=== PATIENT | male | born 1955 | race Caucasian/White ===

== ENCOUNTER 2017-02-04 21:42 | Day surgery (SDC) | payer SELFPAY ==
--- NOTE | ~2017-02-04 | OP ---
Record Of Operation [facility] [address] [place]. [address] NAME: JUDD DE PAZ : 57 STATUS : REG [facility] PAT#: [id number] AGE: 61 ADM/REG DATE : 02/04/17 MR#: [id number] REPORT SERV DATE: 02/05/17 DICTATED BY: GONZALO PARRA DATE: 02/04/17 REPORT STATUS : Draft TRANSCRIBED BY: MODL DATE: 02/04/17 DATE OF PROCEDURE: 02/04/2017 PREOPERATIVE DIAGNOSIS: Left extremely comminuted intra-articular displaced distal radius fracture. POSTOPERATIVE DIAGNOSIS: Left extremely comminuted intra-articular displaced distal radius fracture. OPERATION PERFORMED: Closed reduction and external fixation, left comminuted four-part intra articular distal radius fracture with Age-WristJack. SURGEON: Gonzalo Parra M.D. YOUTH CARE PROFESSIONAL: Avril Cordero. ANESTHESIA: General plus axillary block by Dr. Wilfredo Cordero. TOURNIQUET TIME: 30 minutes. INDICATION FOR OPERATION: Please refer to the history and physical in chart. OPERATIVE FINDINGS: The fracture was extremely comminuted and very distal fracture. Therefore, I did not feel the plate fixation would be optimal as I did not feel we could get distal fixation of the very comminuted distal intra-articular fracture. Reduction was best held with Chanel external fixator. This was placed in standard fashion with the proper amount of distraction applied. A sugar-tong splint was also applied. The reduction of the intra- articular component was acceptable. DESCRIPTION OF PROCEDURE: The patient was taken to the operating room. After being giving successful axillary block by Dr. Wilfredo Cordero, he was then given successful general anesthesia, 2 g Ancef was given IV. Tourniquet was applied to the left arm and secured with Steri-Drape. I then brought the [facility] C-arm and I was able to reduce the fracture with traction. Observing the nature of the fracture, it was extremely comminuted as expected, but it was also a very distal fracture; therefore, I did not feel the plate fixation would be able to get good purchase on the fragments just proximal to the joint. Therefore, I felt that external fixation would be the best course of treatment. The left arm was then prepped with Betadine drape in sterile routine fashion. Esmarch bandage was exsanguinated with the arm. Tourniquet was inflated to 250 mmHg. The Chanel-WristJack was then opened on the back table. Incision was made after proper markings with the guide appliance. Dissection was carried down on the radial forearm between the brachioradialis and extensor carpi radialis longus. The dorsal sensory branch of the radial nerve was isolated and protected with retractors. I then placed the proximal pins using the guide through the radius. The length was checked per the C-arm. An incision was then made on the radial aspect of the index finger metacarpal. A longer-threaded pin was then placed in the base of the metacarpal of the index and middle finger and then a shorter-threaded pin was placed in Record Of Operation [address] [place]. [address] NAME: JUDD DE PAZ : 57 STATUS : REG [facility] PAT#: [id number] AGE: 61 ADM/REG DATE : 02/04/17 MR#: [id number] REPORT SERV DATE: 02/05/17 DICTATED BY: GONZALO PARRA DATE: 02/04/17 REPORT STATUS : Draft TRANSCRIBED BY: SHIRLEY DATE: 02/04/17 the index finger metacarpal shaft. Proper C-arm image was obtained. It showed good position. Both wounds were then copiously irrigated with normal saline solution. The proximal wound was closed with 3-0 Prolene. The distal wound was closed with 4-0 Prolene. The Chanel-WristJack was then applied with longitudinal traction under the C-arm guidance. The wrist block was positioned for to be in the anatomic position and then the right amount of distraction was dialed into the Chanel device under the C-arm guidance. I was overall very happy with the reduction in the extremely comminuted fracture. The tourniquet was let down. Hemostasis was good. Bactroban was applied around the pin sites with standard pin wrap. He was placed in a sugar-tong splint, was taken to recovery room in satisfactory condition, appeared to tolerate the procedure well. It was also noted on the C-arm that there was ulnar styloid fracture that was present. DISPOSITION: The external fixator will be most likely left on around five weeks before we plan to take it off in the office. DOUG/ASHLEYL Gonzalo Parra M.D. / [id number] CC: Geronimo Falcon Jr., D.OKarlo
--- NOTE | ~2017-02-04 | PREOPHP ---
PreOp History and Physical [facility] [address] [place]. [address] NAME: JUDD DE PAZ : 57 [place] [facility] [place] PAT#: [id number] AGE: 61 ADM/REG DATE : 02/04/17 MR#: [id number] REPORT SERV DATE: 02/04/17 DICTATED BY: GONZALO PARRA DATE: 02/04/17 REPORT STATUS : Draft TRANSCRIBED BY: MODJordin DATE: 02/04/17 CHIEF COMPLAINT: Left wrist injury. HISTORY OF PRESENT ILLNESS: This is a 61-year-old, right-hand dominant, retired white male, who was doing some work on his house on the outside today, when he fell from a six to eight feet height onto his outstretched left hand. He came to the [facility] emergency room and was found to have a fully displaced comminuted intra-articular distal radius fracture. He denies any numbness and tingling. The emergency room doctor asked for me to take care of the patient in an urgent fashion. PAST MEDICAL HISTORY AND ALLERGIES: None known. PAST SURGERIES: Left dorsal wrist ganglion cyst excision and left benign breast tumor excision. MEDICAL PROBLEMS: History of high blood pressure, gout, and neuropathy. HOME MEDICATIONS: Amlodipine, allopurinol, and gabapentin. SOCIAL AND FAMILY HISTORY: He is . He does have a roommate. He does not smoke. Quit alcohol two years ago. He is retired and lives in [place]. PHYSICAL EXAMINATION: GENERAL: Shows a pleasant, cooperative, calm white male. HEENT: Normocephalic, atraumatic. CHEST: Clear to auscultation. HEART: Regular rate and rhythm. ABDOMEN: Soft, nontender. EXTREMITIES: Left hand exam shows a silver-fork deformity of the left distal radius. He does have good sensation to light touch. IMAGING: X-rays of the left wrist shows a 100% displaced and shortened comminuted intra- articular distal radius fracture. IMPRESSION: Completely displaced comminuted intra-articular distal radius fracture, left. PLAN: With this fracture being completely displaced comminuted intra-articularly, we will plan to take him urgently to the operating room and perform ORIF versus external fixation of left distal radius. Risks and benefits were discussed with the patient, including but not limited to, arthritis, stiffness, loss of reduction, instability, and infection. He understands and would like to proceed as outlined above. First of all, it will most likely be in a week. BS/SHIRLEY PreOp History and Physical [place] [place] [address] [place]. [address] NAME: JUDD DE PAZ : 57 [place] [facility] [place] [id number] AGE: 61 ADM/REG DATE : 02/04/17 MR#: [id number] REPORT SERV DATE: 02/04/17 DICTATED BY: GONZALO PARRA DATE: 02/04/17 REPORT STATUS : Draft TRANSCRIBED BY: ASHLEYL DATE: 02/04/17 Gonzalo Parra M.D. / [id number] CC: Geronimo Falcon Jr., D.OKarlo
[2017-02-04 20:47] LABS: BASOPHILS 0.2 %; BASOPHILS ABSOLUTE 0.02 10/3/uL (0.0-0.16); EOSINOPHILS 0.2 %; EOSINOPHILS ABSOLUTE 0.02 10/3/uL (0.0-0.53); HEMATOCRIT 40.1 % (40.0-51.0); HEMOGLOBIN 13.9 g/dL (13.6-17.8); IMMATURE GRANULOCYTES 0.3 %; IMMATURE GRANULOCYTES ABSOLUTE 0.04 10/3/uL (0.0-0.11); LYMPHOCYTES 11.8 %; LYMPHOCYTES ABSOLUTE 1.47 10/3/uL (0.67-4.30); MEAN CORPUS HGB CONC 34.7 g/dL (32.0-36.0); MEAN CORPUSCULAR HEMOGLOB 29.7 pg (26.0-34.0); MEAN CORPUSCULAR VOLUME 85.7 fL (80-100); MEAN PLATELET VOLUME 9.8 fL (9.2-13.0); MONOCYTES 8.4 %; MONOCYTES ABSOLUTE 1.04 10/3/uL (0.21-1.20); NEUTROPHILS 79.1 %; NEUTROPHILS ABSOLUTE 9.82 10/3/uL (2.02-8.40); PLATELET COUNT 196 10/3/uL (150-400); RED CELL COUNT 4.68 10/6/uL (4.7-6.1); WHITE BLOOD CELLS 12.4 10/3/uL (4.5-10.5)
[2017-02-04 20:49] LABS: MANUAL DIFF NO %
[2017-02-04 20:58] LABS: INTERNATIONAL NORMAL RATI 1.1 UNITS (-); PARTIAL THROMBO TIME 27.7 SEC (22.5-37.2); PROTIME (NOT ORD) 14.1 SEC (12.0-14.5)
[2017-02-04 21:11] LABS: BUN (BLOOD UREA NITROGEN) 12 MG/DL (6-23); CALCIUM, SERUM 8.8 MG/DL (8.5-10.4); CHLORIDE, SERUM 103 MMOL/L (96-112); CO2 (CARBON DIOXIDE) 29 MMOL/L (24-34); CREATININE 0.99 MG/DL (0.70-1.30); GFR AFRICAN AMERICAN 96 ML/MIN (>=60); GFR NON AFRICAN AMERICAN 82 ML/MIN (>=60); GLUCOSE, SERUM 146 MG/DL (60-99); POTASSIUM, SERUM 3.6 MMOL/L (3.5-5.3); SODIUM, SERUM 140 MMOL/L (135-148)
== END 2017-02-04 23:59 | disposition home or self-care (01) ==
LOC: ER 21:42 → SDC 21:44
PROVIDERS: Orthopaedic Surgery Hand Surgery; Physician Assistant
PROC: 0PSJXZZ Reposition Left Radius, External Approach (ICD-10-PCS; principal; 2017-02-04 21:08)
DX: S52.92XA Unspecified fracture of left forearm, initial encounter for closed fracture (principal); I10 Essential (primary) hypertension; M10.9 Gout, unspecified; G62.9 Polyneuropathy, unspecified
CPT/HCPCS: 36415; 71010; 73110-LT; 80048; 81001; 85025; 85610; 85730; 86850; 86900; 86901; 93005; 96374; 96375; 99284; J0690; J1170; J2250; J2405; J2710; J2795; J3010